=== PATIENT | male | born 1990 | race American Indian/Alaskan Native ===

== ENCOUNTER 2018-02-27 13:31 | Emergency (ER) | payer OTHER ==
[2018-02-27 14:20] VITALS: BP 124/60
[2018-02-27] MEDS ORDERED: MOTRIN PO ONE (14:39)
--- NOTE | 2018-02-27 14:41 | Emergency Department Report ---
Blank Doc - Documentation Documentation: Patient is a 27-year-old black male who is presenting with right-sided testicular pain. Patient states this event present for approximately 2-3 days. Patient denies any trauma dysuria or penile discharge. Patient does have some tenderness on palpation. External genitalia does appear normal. Patient will have ultrasound to rule out surgical emergency.
--- NOTE | 2018-02-27 15:08 | Emergency Department Report ---
ED Male HPI - General Chief complaint: Urogenital-Male Stated complaint: RT TESTICLE PAIN Time Seen by Provider: 02/27/18 14:36 Source: patient Mode of arrival: Ambulatory Limitations: No Limitations - History of Present Illness Initial comments: Patient is a 27-year-old black male who is presenting with right-sided testicular pain. Patient states this event present for approximately 2-3 days. Patient denies any trauma dysuria or penile discharge. Patient denies any fever or chills. Pain is 9 out of 10 to right scrotal area. He said it is sharp and feels heavy. No medication taken and no alleviating factors but exacerbated by touching and movement. Denies any abdominal pain or back pain. MD Complaint: testicle pain, testicle swelling Onset/Timin -: days(s) Location: right testicle Radiation: none Severity: severe Severity scale (0 -10): 9 Quality: sharp Consistency: constant Improves with: none Worsens with: palpation, movement swelling. denies: discharge, mass, rash, urinary retention, blood in urine, dysuria, fever, nausea/vomiting, incontinence - Related Data Sexually active: Yes Previous Rx's Medication Instructions Recorded Last Taken Type Ciprofloxacin HCl [Ciprofloxacin 500 mg PO Q12H 10 Days #20 tab 02/27/18 Unknown Rx TAB] Ibuprofen [Motrin] 800 mg PO Q8HR PRN #15 tablet 02/27/18 Unknown Rx Allergies Allergy/AdvReac Type Severity Reaction Status Date / Time No Known Allergies Allergy Unverified 02/27/18 14:16 ED Review of Systems ROS: Stated complaint: RT TESTICLE PAIN Other details as noted in HPI Constitutional: denies: chills, fever ENT: denies: ear pain, throat pain Respiratory: denies: cough, shortness of breath, SOB with exertion, SOB at rest , stridor, wheezing Cardiovascular: denies: chest pain, palpitations Gastrointestinal: denies: abdominal pain, nausea, vomiting, diarrhea Genitourinary: testicular pain. denies: urgency, dysuria, frequency, hematuria , discharge, testicular mass Musculoskeletal: denies: back pain, joint swelling, arthralgia, myalgia Skin: denies: rash, lesions, pruritus Neurological: denies: headache, weakness ED Past Medical Hx - Past Medical History Previous Medical History?: No - Surgical History Past Surgical History?: Yes Hx Appendectomy: Yes - Family History Family history: no significant - Social History Smoking Status: Never Smoker Substance Use Type: None - Medications Home Medications: Home Medications Medication Instructions Recorded Confirmed Last Taken Type Ciprofloxacin HCl [Ciprofloxacin 500 mg PO Q12H 10 Days #20 tab 02/27/18 Unknown Rx TAB] Ibuprofen [Motrin] 800 mg PO Q8HR PRN #15 tablet 02/27/18 Unknown Rx ED Physical Exam - General Limitations: No Limitations General appearance: alert, in no apparent distress - Head Head exam: Present: atraumatic, normocephalic, normal inspection - Eye Eye exam: Present: normal appearance, PERRL, EOMI Pupils: Present: normal accommodation - ENT ENT exam: Present: normal exam, normal orophraynx, mucous membranes moist, TM's normal bilaterally, normal external ear exam - Neck Neck exam: Present: normal inspection, full ROM. Absent: tenderness, lymphadenopathy - Respiratory Respiratory exam: Present: normal lung sounds bilaterally. Absent: respiratory distress - Cardiovascular Cardiovascular Exam: Present: regular rate, normal rhythm, normal heart sounds. Absent: systolic murmur, diastolic murmur - GI/Abdominal GI/Abdominal exam: Present: soft, normal bowel sounds. Absent: distended, tenderness, guarding, rebound, rigid, organomegaly, mass - exam: Present: testicular tenderness (right), scrotal swelling (right). Absent: normal inspection, urethral discharge, vertical testicular lie External exam: Present: erythema (right scrotal area), swelling (right scrotal area). Absent: normal external exam, lesions, lacerations, ecchymosis, bleeding - Expanded Exam Expanded Male exam: Present: erythema (right testicle area). Absent: phimosis, paraphimosis, penile swelling, lesions, induration, perineal induration, balanitis, priapism exam: Testicular Tenderness: Right, Testicular Swelling: Right, Epididymal Tenderness: Right, Cremasteric Reflex Present: Right, Left - Extremities Exam Extremities exam: Present: normal inspection, full ROM, normal capillary refill , other (No cce. + 2 pulses in all extremities, no neurovascular compromise). Absent: tenderness, pedal edema, joint swelling, calf tenderness - Back Exam Back exam: Present: normal inspection, full ROM. Absent: tenderness, CVA tenderness (R), CVA tenderness (L), muscle spasm, paraspinal tenderness, vertebral tenderness, rash noted - Neurological Exam Neurological exam: Present: alert, oriented X3, normal gait - Psychiatric Psychiatric exam: Present: normal affect, normal mood - Skin Skin exam: Present: warm, dry, intact, erythema (right scrotal area with swelling.). Absent: normal color ED Course Vital Signs 02/27/18 14:16 Temperature 98.9 F Pulse Rate 62 Respiratory 18 Rate Blood Pressure 124/60 O2 Sat by Pulse 99 Oximetry - Reevaluation(s) Reevaluation #1: 02/27/18 17:46 Patient with epididymitis-orchitis, right per ultrasound. He was given Motrin 800 mg and emergency room which relieved his pain. Patient was covered for gonorrhea and chlamydia with Rocephin and twinge of 50 mg IM and azithromycin 1 g by mouth. He had no adverse reaction. I discuss diagnosis and treatment plan the patient and he voiced understanding. ED Medical Decision Making - Radiology Data Radiology results: report reviewed Ultrasound Doppler is testicle dictated by radiologist's report reviewed by myself. Please see report below Patient: GEGE BRADSHAW MR#: [id number] : 1990 Acct:[id number] Age/Sex: 27 / M ADM Date: 02/27/18 Loc: ED Attending Dr: Ordering Physician: KELLEY ARAUZ MD Date of Service: 02/27/18 Procedure(s): US testicular doppler comp Accession Number(s): [id number] cc: KELLEY ARAUZ MD FINAL REPORT EXAM: US TESTICULAR DOPPLER COMP HISTORY: testicle pain right TECHNIQUE: Longitudinal and transverse grayscale, color, and Doppler sonographic images were performed Comparison: None FINDINGS: The right testicle measures 4.1 x 2.2 x 2.9 centimeters. The right testicle is diffusely hyperemic. No intratesticular mass lesion. Mildly heterogeneous echotexture. Right epididymal head is enlarged and measures 1.4 x 0.6 x 1.3 centimeters. Increased color flow. 0.3 centimeter right epididymal head cyst. Small right hydrocele. The left testicle measures 4.1 x 2.1 x 2.5 centimeters. The left testicle demonstrates normal color flow. No intratesticular mass lesion. Mildly heterogeneous echotexture. Left epididymal head measures 0.9 x 0.5 x 1.2 centimeters and demonstrates normal color flow. Valsalva technique demonstrates no hernia or significant varicocele bilaterally. IMPRESSION: Right epididymo-orchitis. Transcribed By: MP Dictated By: ROSA M HOLLIS Electronically Authenticated By: ROSA M HOLLIS Signed Date/Time: 02/27/181630 DD/ 30 TD/TT: 02/27/181630 - Medical Decision Making This is a 27-year-old male came to the emergency room after 3 days of having an right scrotal redness, pain and swelling. Pain is 9 out of 10 and worse with movement. Patient is concerned and is here to be treated. Was treated by Dr. Arauz and orders place. Physical exam with erythema, tender to palpate scrotum on the right side. He has no penile discharge, rash or lesion. Penile exam is normal. He has no masses felt on physical exam. Ultrasound of the testicles completed and dictated by radiologist and report reviewed by myself. Abdominal and back exam is normal. Patient with Right epididymo-orchitis. Gave patient and printed information on diagnosis and I also gave him information on ultrasound report. I told them that was common cause of his diagnosis and that is recommended that he is be treated for gonorrhea and Chlamydia and be placed on antibiotic as outpatient. He agrees. Patient is not having any symptoms of STD and he said he is and only a sex with his . She was given Motrin for pain which relieved his pain. He was given Rocephin 250 mg IM and azithromycin 1 g by mouth to cover gonorrhea and chlamydia and he had no adverse reaction. Patient and asked that I speak to his and I made a phone call and she did not answer phone and he is aware of that. I discussed treatment plan with patient and he voiced understanding. Assessment/plan Right [id number] empirically for gonorrhea and chlamydia with Rocephin and azithromycin. Pt given why he has been treated for this. He had not first reaction. I told him to let his noted he was treated for this in emergency room although is not having any symptoms so she can go get tested. I also informed him that he needs to get tested for gonorrhea and Chlamydia in 7-10 days. Will be discharged home on ciprofloxacin Right scrotal pain and swelling-Motrin 800 mg by mouth given in emergency room and will be discharged home in Motrin. I also informed patient that he needs to get a jock strap from pharmacy to scrotum from hanging down which will cause more pain. I also told them to apply ice several times a day for 15 minutes. I also told him that the recommendation is for him to rest and not do any strenuous activity for quick healing. Patient educated on diagnosis, treatment plan, ice therapy, rest, medication and to follow-up with his primary care physician and/or urologist in 4 days for follow-up visit. Patient discharged home in stable condition with prescription for ciprofloxacin and Motrin. Vital signs are stable and is afebrile. Anus control. He is aware that he needs to follow-up in 4 days and to let his partner know that he was treated for gonorrhea and Chlamydia in emergency room without any symptoms. He voiced understanding and discharged home in stable condition. - Differential Diagnosis mass, torsion testicular epididymitis, orchitis, epididymo-orchitis. Critical care attestation.: If time is entered above; I have spent that time in minutes in the direct care of this critically ill patient, excluding procedure time. ED Disposition Clinical Impression: Epididymo-orchitis, acute, Scrotal pain Disposition: TO HOME OR SELFCARE Is pt being admited?: No Does the pt Need Aspirin: No Condition: Stable Instructions: Epididymo-orchitis (ED), Testicle Pain (ED) Additional Instructions: Apply ice to affected area several times a day for 15 minutes at a time Follow up with your primary care doctor or urologist in 4 days. Wear scrotal support this will help to reduce pain Take ciprofloxacin antibiotic and also Motrin to help with pain. Referrals: DENISE TROTTER MD [Staff Physician] - 03/03/18 [facility] [Outside] - 03/03/18 [facility] [Provider Group] - 03/03/18 Forms: STI Treatment and Prevention, Work/School Release Form(ED)
--- NOTE | 2018-02-27 16:38 | Ultrasound Report ---
FINAL REPORT EXAM: US TESTICULAR DOPPLER COMP HISTORY: testicle pain right TECHNIQUE: Longitudinal and transverse grayscale, color, and Doppler sonographic images were performed Comparison: None FINDINGS: The right testicle measures 4.1 x 2.2 x 2.9 centimeters. The right testicle is diffusely hyperemic. No intratesticular mass lesion. Mildly heterogeneous echotexture. Right epididymal head is enlarged and measures 1.4 x 0.6 x 1.3 centimeters. Increased color flow. 0.3 centimeter right epididymal head cyst. Small right hydrocele. The left testicle measures 4.1 x 2.1 x 2.5 centimeters. The left testicle demonstrates normal color flow. No intratesticular mass lesion. Mildly heterogeneous echotexture. Left epididymal head measures 0.9 x 0.5 x 1.2 centimeters and demonstrates normal color flow. Valsalva technique demonstrates no hernia or significant varicocele bilaterally. IMPRESSION: Right epididymo-orchitis.
[2018-02-27] MEDS ORDERED: XYLOCAINE 1% MPF 5 mL INFILTRATI ONE (17:42)
[2018-02-27] MEDS ORDERED: ZITHROMAX PO ONE (17:42)
[2018-02-27] MEDS ORDERED: ROCEPHIN IM ONE (17:42)
== END 2018-02-27 18:18 | disposition home or self-care (01) ==
LOC: ED 13:31
DX: N45.3 Epididymo-orchitis (principal); Z90.49 Acquired absence of other specified parts of digestive tract
CPT/HCPCS: 87591; 93975; 96372; 99283; J0696

== ENCOUNTER 2019-04-14 20:06 | Emergency (ER) | payer OTHER ==
[2019-04-14 20:26] VITALS: BP 132/48
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
[2019-04-14] MEDS ORDERED: TYLENOL PO ONE (23:21)
[2019-04-14] MEDS ORDERED: IBUPROFEN PO ONE (23:21)
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
== END 2019-04-15 00:01 | disposition home or self-care (01) ==
LOC: ED 20:06
DX: M54.5 Low back pain (principal); M62.830 Muscle spasm of back; Z90.49 Acquired absence of other specified parts of digestive tract; V49.59XA Passenger injured in collision with other motor vehicles in traffic accident, initial encounter; Y93.89 Activity, other specified; Y92.488 Other paved roadways as the place of occurrence of the external cause; Y99.8 Other external cause status
CPT/HCPCS: 72100